=== PATIENT | female | born 1990 | race African-American/Black ===

== ENCOUNTER 2022-10-05 09:43 | Emergency (ER) | payer BC ==
[2022-10-05 11:48] LABS: Bilirubin Negative (Negative); Blood, Urine Negative (Negative); Clarity Turbid (Clear); Glucose, Urine (Dipstick) Normal (Negative); Ketone, Urine 20 mg/dL (Negative); Leukocyte Negative Leu/uL (Negative); Nitrite Negative (Negative); Protein, Urine (Dipstick) Negative (Neg-Trace); Specific Gravity, Urine 1.018 (1.002-1.036); Urobilinogen Normal mg/dL (Less than 2); pH, Urine 5.5 (5.0-9.0)
[2022-10-05 11:49] LABS: Pregnancy Test - Urine (BHCG) Negative (Negative); Pregu Control Background? CLEAR/WHITE (CLR/WHITE); Pregu Control Bar Appear? YES (CONTROL BAR); Specific Gravity 1.018 (1.002-1.036)
== END 2022-10-05 12:03 | disposition home or self-care (01) ==
LOC: ERS 09:43
DX: M54.9 Dorsalgia, unspecified (principal); G89.29 Other chronic pain; E66.9 Obesity, unspecified; N39.9 Disorder of urinary system, unspecified
CPT/HCPCS: 81003; 81025; 99283